=== PATIENT | female | born 1990 | race Caucasian/White ===

== ENCOUNTER 2021-03-22 15:34 | Emergency (ER) | payer MEDICAID ==
[2021-03-22 15:44] VITALS: BP 103/60; PULSE 70
[2021-03-22] MEDS ORDERED: Dextrose 5%-Lactated Ringers 1,000 ML IV SCH (15:45)
--- NOTE | 2021-03-22 16:23 | EDM.PDOC ---
ED HPI GENERAL MEDICAL PROBLEM - General Chief Complaint: Syncope Stated Complaint: SENT BY CLINIC LAB Time Seen by Provider: 03/22/21 15:40 Source of Information: Reports: Patient, Family History Limitations: Reports: No Limitations (Spouse) - History of Present Illness INITIAL COMMENTS - FREE TEXT/NARRATIVE: 30-year-old female presents to the ED after suffering a syncopal event while lying supine in the clinic lab on the side of the hospital. Patient has a propensity to faint at the site of blood since she was age 4. She has not been feeling well with continued nausea and vomiting throughout the entire . She is currently 13 weeks gestation. She did see Dr. Urena today for the first time and did have appropriate lab work drawn. Apparently the lab did obt ain all the blood that was required. Patient did suffer a syncopal event and her reports that she did have her eyes rolled back in her head and the reemergence phenomena did occur. There was no true seizure activity. She could answer appropriate questions as soon as she regained consciousness. Estimated loss of consciousness was for about 20 seconds. She did not fall and therefore did not get hurt. She had warned the tach that she is prone to fainting with lab draws. She has had persistent nausea and vomiting almost throughout the entire . She has been using diclegis 1/2 tablet at bedtime and 1/2 tablet first thing in the morning to try and control nausea and vomiting during the with some degree of success. She states that if she takes the whole dose at bedtime she is drowsy throughout a good portion of the day. She is 3 para 2. Both pregnancies were delivered by . Current estimated date of confinement is September 28, 2021. Patient has had no spotting or bleeding per vagina. But sugar checked at the rapid response unit was 80. At the time she was seen in the ED she is alert oriented and answers all questions quite appropriately. Onset: Today, Sudden Onset Date: 03/22/21 Onset Time: 15:30 (Was having phlebotomy draw at the clinic lab E side of the hospital when she had a syncopal event while lying supine in a chair. Rapid response team was summoned.) Duration: Minutes:, Improving Location: Reports: Other (Syncopal event lasting approximately 20 seconds that occurred during phlebotomy draw) Quality: Reports: Other (Vasovagal syncope) Severity: Moderate Improves with: Reports: Other (Improved spontaneously) Context: Reports: Other (Syncope occurred during phlebotomy draw which is happened to her many times in the past.). Denies: Activity, Exercise, Lifting, Sick Contact, Trauma Associated Symptoms: Reports: Loss of Appetite, Malaise, Nausea/Vomiting (Persistent nausea and vomiting throughout the entire . She has not kept down anything so far today.), Weakness. Denies: Confusion, Chest Pain, Cough, cough w sputum, Diaphoresis, Fever/Chills, Headaches, Rash, Shortness of Breath, Syncope Treatments RN CARDIAC REHAB: Reports: Other (see below) (Take lieges but did not stay down this morning) - Related Data Allergies Allergy/AdvReac Type Severity Reaction Status Date / Time No Known Allergies Allergy Verified 03/22/21 15:36 Home Meds: Home Meds Mv-Mn/Iron/FA/Herbal/Digestive [ One Tablet] 1 each PO DAILY 05/07/18 [History] Acetaminophen [Tylenol] 650 mg PO Q4H PRN tablet 05/09/18 [Rx] Acetaminophen/oxyCODONE [Percocet 325-5 MG] 1 tab PO Q6H PRN #10 tablet 05/09/18 [Rx] Docusate Sodium [Colace] 100 mg PO Q12H PRN cap 05/09/18 [Rx] Ibuprofen 200 mg PO Q6H #50 tablet 05/09/18 [Rx] Lanolin [Lansinoh HPA] 1 applic TOP ASDIRECTED PRN tube 05/09/18 [Rx] Past Medical History - Past Health History Medical/Surgical History: Denies Medical/Surgical History Respiratory History: Reports: Asthma EXPORT PACKER History: Reports: Other EXPORT PACKER History: C/S in 2014 Musculoskeletal History: Reports: Other (See Below) Other Musculoskeletal History: 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, wears wrist brace at times - Past Surgical History Respiratory Surgical History: Reports: None Female Surgical History: Reports: Section Social & Family History - Family History Family Medical History: No Pertinent Family History HEENT: Reports: Other (See Below) Cardiac: Reports: Other (See Below) Neurological: Reports: Other (See Below) Endocrine/Metabolic: Reports: Other (See Below) Oncologic: Reports: Breast - Tobacco Use Tobacco Use Status *Q: Never Tobacco User - Caffeine Use Caffeine Use: Reports: None - Recreational Drug Use Recreational Drug Use: No - Living Situation & Occupation Living situation: Reports: Occupation: Unemployed ED ROS GENERAL - Review of Systems Review Of Systems: See Below Constitutional: Reports: Malaise, Weakness, Fatigue, Decreased Appetite, Weight Loss. Denies: Fever, Chills HEENT: Reports: No Symptoms Respiratory: Reports: No Symptoms Cardiovascular: Reports: No Symptoms, Blood Pressure Problem (Pressure tends to run 100 and and 5-110 systolic.) Endocrine: Reports: No Symptoms GI/Abdominal: Reports: No Symptoms : Reports: Frequency Musculoskeletal: Reports: No Symptoms Skin: Reports: No Symptoms Neurological: Reports: Syncope (Syncopal event that occurred today during phlebotomy draw. Rapid response team was summoned to the clinic lab on the side of the hospital.) Psychiatric: Reports: No Symptoms Hematologic/Lymphatic: Reports: No Symptoms Immunologic: Reports: No Symptoms - Physical Exam Exam: See Below Exam Limited By: No Limitations General Appearance: Alert, WD/WN, No Apparent Distress, Other (Temperature is 35.6 and she is a slightly cool and clammy to touch. Heart rate is 70 in sinus respiratory is 18 with O2 sats of 99% room air BP 103 on 60. Blood sugar according to rapid response team was 80.) Eye Exam: Bilateral Eye: Normal Inspection (Mild blepharal pallor noted no scleral icterus.), PERRL Throat/Mouth: Normal Inspection, Normal Lips, Normal Teeth, Normal Oropharynx, Other (Injury to her tongue or dentition.) Head Exam: Atraumatic, Normocephalic Neck: Normal Inspection, Supple, Non-Tender, Full Range of Motion. No: Carotid Bruit, Lymphadenopathy (L), Lymphadenopathy (R) Respiratory/Chest: No Respiratory Distress, Lungs Clear, Normal Breath Sounds, No Accessory Muscle Use Cardiovascular: Normal Peripheral Pulses, Regular Rate, Rhythm, No Edema, No Gallop, No Murmur, No Rub GI/Abdominal: Normal Bowel Sounds, Soft, Non-Tender, No Organomegaly, No Mass, Pelvis Stable Neuro Exam (Abbreviated): Alert, Oriented, CN II-XII Intact, Normal Cognition, N o Motor/Sensory Deficits (Not tested.). No: Normal Gait Back Exam: Normal Inspection, Full Range of Motion. No: CVA Tenderness (L), CVA Tenderness (R) Extremities: Normal Inspection, Normal Range of Motion, Non-Tender, No Pedal Edema Psychiatric: Normal Affect Skin Exam: Warm, Dry, Intact, Normal Color, Cool Course - Vital Signs Last Recorded V/S: Last Vital Signs Temp 35.6 C L 03/22/21 15:38 Pulse 70 03/22/21 15:38 Resp 18 03/22/21 15:38 BP 103/60 03/22/21 15:38 Pulse Ox 99 03/22/21 15:38 Orthostatic Blood Pressure [ 103/68 Standing] Orthostatic Blood Pressure [ 112/67 Sitting] Orthostatic Blood Pressure [ 99/49 Supine] - Orders/Labs/Meds Meds: Medications Discontinued Medications Generic Name Dose Route Start Last Admin Trade Name Freq PRN Reason Stop Dose Admin Dextrose/Lactated Ringer's 1,000 mls @ 999 mls/hr 03/22/21 15:45 03/22/21 15:48 Dextrose 5%-Lactated Ringers IV 999 mls/hr ASDIRECTED GILBERTO Administration Metoclopramide HCl 7.5 mg 03/22/21 16:28 03/22/21 16:37 Metoclopramide 10 Mg/2 Ml Sdv IVPUSH 03/22/21 16:29 7.5 mg ONETIME ONE Administration - Radiology Interpretation Free Text/Narrative:: 30-year-old female presents to the ED after suffering a syncopal event well undergoing phlebotomy in the [facility] of the [facility]. She had just come from Dr. Urena's office for her first visit. Of note she is 3 para 2 and is currently 13 weeks gestation with estimated date of confinement set for September 28, 2021. A rapid response team was called to the lab and identified that she had suffered a syncopal event. She was unresponsive for approximately 20 seconds and did experience some reemergence phenomenon with some jerking of her upper limbs and eyes were rolled back in her head during the 20 seconds that she was unresponsive. No true seizure occurred. Blood sugar on scene was 80. On examination in the ED her blood pressure was up to 110/49. We did not do her orthostatics and she indicates she has not ate or drank much at all today due to recurrent nausea and vomiting. She denies any hematemesis. Apparently the lab did receive all of the blood tests ordered. We will have them sent over to our department once they are available. Plan she will be given Reglan 7.5 mg IV with D5 Ringer's lactate at open. - Re-Assessments/Exams Free Text/Narrative Re-Assessment/Exam: 03/22/21 16:42 labs were obtained from her lab draw [facility] the [facility]. White count is 10.30 with 74.3% neutrophils. Hemoglobin is 13.4 with hematocrit of 40.0 platelet count 310,000. MCV is normal TSH was found to be 0.054 and free T4 is 0.96. Sodium 134 slightly low potassium slightly low at 3.2 from not being able to eat. Chloride is 99 with a bicarb of 22. Anion gap was mildly elevated at 16.2. Random glucose in the lab was 85. BUN was 9 with a creatinine of 0.8 and a GFR greater than 60. Calcium was 8.7. Total protein 7.5 with an albumin fraction of 3.6 and globulin normal at 3.9. Lactic acid was 1.1. Microalbumin done on the urine was 16.2 with normal being 1.3-20.0. Urinalysis showed slightly cloudy urine with 1+ protein and 12+ ketones and 1+ bilirubin. The slide revealed no RBCs or WBCs. She has completed a full liter of IV fluids. Blood pressure remains slightly low at 95/58 at present. Heart rate is 72 and sinus. She states she feels better. I am going to have the nurses recheck her orthostatic BPs sitting and standing at this time to see if she needs more fluid. Departure - Departure Time of Disposition: 17:45 Disposition: Home, Self-Care 01 Condition: Fair Clinical Impression: Vasovagal syncope, Hyperemesis gravidarum before end of 22 week gestation with carbohydrate depletion - Discharge Information *PRESCRIPTION DRUG MONITORING PROGRAM REVIEWED*: Not Applicable *COPY OF PRESCRIPTION DRUG MONITORING REPORT IN PATIENT MARITA: Not Applicable Instructions: Hyperemesis Gravidarum, Dehydration, Adult, [id number] Referrals: Chema Cullen MD [Primary Care Provider] - Forms: ED Department Discharge Additional Instructions: Evaluation in the emergency room today in regards to a fainting spell or syncopal event that occurred while having blood draw at the clinic on the side of the hospital. You had indicated that you are prone to fainting especially with blood draws and therefore you were seated in a chair when the event occurred. Condition is complicated by the fact that you have significant nausea and vomiting over the last month secondary to or hyperemesis grav idarum. This is created a volume depletion which makes you more prone to fainting as well. There was no clinical evidence of seizure activity. He did suffer we will recall the reemergence phenomenon as blood pressure comes back up in the brain has its blood pressure returned this will cause some transient jerking movements of the limbs and face but you are able to speak and answer questions appropriately right away. In the emergency room he received a liter of IV fluids to replenish fluid losses. Labs obtained from the clinic that were drawn were all within normal limits. He also received Reglan 7.5 mg IV for nausea relief while in the ED. Sepsis Event Note (ED) - Evaluation Sepsis Screening Result: No Definite Risk - Focused Exam Vital Signs: Vital Signs Temp Pulse Resp BP Pulse Ox 03/22/21 15:38 35.6 C L 70 18 103/60 99
[2021-03-22] MEDS ORDERED: Metoclopramide 10 MG/2 ML SDV IVPUSH ONE (16:28)
== END 2021-03-22 17:49 | disposition home or self-care (01) ==
LOC: JD.ED 15:34
DX: O21.1 Hyperemesis gravidarum with metabolic disturbance (principal); O99.511 Diseases of the respiratory system complicating pregnancy, first trimester; J45.909 Unspecified asthma, uncomplicated; Z3A.13 13 weeks gestation of pregnancy
CPT/HCPCS: 96374; 99283; J2765; J7121; 99284

== ENCOUNTER 2021-09-21 04:54 | Inpatient (IN) | payer MEDICAID ==
--- NOTE | 2021-09-20 20:48 | PCM.LDHP ---
L&D History of Present Illness - General Date of Service: 09/20/21 Admit Problem/Dx: Admission Diagnosis/Problem Admission Diagnosis/Problem 09/20/21 20:36 Mikala is a 31-year-old 3 para 2-0-0-2 female at 39-0/7 weeks gestational age with an CHRISSIE of 09/28/2021 when admitted on the morning of 09/21/2021 for a repeat section. Source of Information: Patient History Limitations: Reports: No Limitations - History of Present Illness Introduction:: Mikala is a 31-year-old 3 para 2-0-0-2 female at 39-0/7 weeks gestational age with an CHRISSIE of 09/28/2021 when admitted on the morning of 09/21/2021 for a repeat section. The process, procedure, risks, benefits and alternatives of care and follow-up regarding are discussed in detail with patient. She appears understand and wishes to proceed. Consent is signed. FLITCH HANGER history: The patient is a 3 para 2-0-0-2. She had menarche at approximately age 11. Cycles q. 28 to 30 days. She is not using any control at the time of conception. Her CHRISSIE of 09/28/2021 is determined by an early ultrasound done at 8 and 07 weeks gestational age and supported by at least 3 other ultrasounds during the course of the . She has a history of 2 other C-sections as follows: 1. Female born on 02/10/2017 at 40-4/7 weeks gestational age7 pounds 13 ouncesprimary section done for failure to progress. Spinal block use. Child's name is Hugo. 2. Female born 05/07/2020 at 39 and 07 weeks gestational age1 hour of labor6 pounds 14 ounces. Repeat sectionspinal block used. Child's name is Karen. Patient has had no abnormal Pap smears or STIs in the past. She is sexually active, using no control at the time of conception. course: Mikala was first seen at 8-0/7 weeks gestational age. She was seen on a very regular basis throughout the . Her vital signs remained stable throughout the . Her weight gain was from a pregravid weight of 197 pounds and increased to 209 pounds for a 12 pound increase. Fundal height growth was somewhat ahead of schedule based on gestational age. She desires a repeat section. She is group B strep negative. She has asthma which has been relatively stable during the course of the . She plans to bottlefeed. She had prequel which was negative for trisomy 18, 13 and 21. Tdap and flu vaccine were given on 07/20/2021. Laboratory testing showed blood to be O+ with a negative antibody screen on first jeremy visit. Hemoglobin was 13.4 g/dL and platelets were 310,000. Rubella titer showed immunity and RPR was nonreactive. Hepatitis B surface antigen and HIV assays were both negative. Chlamydia, gonorrhea and HCV antibody were negative. TSH was normal on 03/22/2021 at 0.054 mg/L. Second trimester labs showed hemoglobin mildly decreased at 10.2 g/dL and platelets of 343,000. Her GTT was normal at 110. Repeat hemoglobin after initiation of iron replacement therapy done on 08/24/2021 was 10.4 g/dL. Platelets are 268,000 and group B strep screen was negative. Hemoglobin A1c was 5.3. Allergies: None Medications: 1. Metoclopramide HCl 10 mg p.o. 4 times a day for nausea 2. Ferrous sulfate 3 and 25 mg p.o. twice daily 3. Diclegis as needed in early for nausea 4. vitamins 1 p.o. daily Past medical history: 1. Asthma which has been relatively stable during . 2. Seasonal allergies Past surgical history: x2 in 2014 2017 Family history: Father and paternal grandmother and great-grandmother with pituitary tumors. Father and paternal grandmother with thyroid dysfunction. Paternal grandmother has a history of breast cancer. Paternal grandfather is prediabetic. Maternal grandfather has stents and pacemaker placed for cardiac vessel disease. No anesthesia, bleeding, blood pressure or related problems are noted in the family. Social history: Patient is . 's name is Jose. 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 She does not use any significance alcohol, drugs or tobacco. Review of systems: Review of systems: In general patient has no complaints. Baby has been active. No significant contractions noted Skin: Negative Lungs: No infectious symptoms or shortness of breath Cardiovascular: No chest pain or exercise intolerance Breasts: No lumps, changes in size, pain, dimpling, discharge or axillary or supraclavicular concerns. Changes associated with . Patient plans to bottlefeed. GI: Negative : Body habitus changes associated with . Musculoskeletal: Negative Neurological: Negative Physical exam: In general the patient is well-developed, well-nourished, pleasant female of stated age in no acute distress. Skin is warm dry without lesions. HEENT, neck and back within normal limits. Lungs are clear with good breath sounds in all lung judge. Cardiovascular exam shows regular and rhythm without murmurs. Breast exam is not done at this time. Patient reported that it was done within the last year and was normal. Abdomen is gravid with last fundal height on 09/14/2021 at 42 cm. Baby in vertex presentation.. Genital digital exam last done on 09/14/2021 showed cervix to be closed/- 5/soft/50% effaced/mid position. Extremities and neurological exam are grossly within normal limits. - Related Data Allergies/Adverse Reactions: Allergies Allergy/AdvReac Type Severity Reaction Status Date / Time No Known Allergies Allergy Verified 03/22/21 15:36 Home Medications: Home Meds Mv-Mn/Iron/FA/Herbal/Digestive [ One Tablet] 1 each PO DAILY 05/07/18 [History] Acetaminophen [Tylenol] 650 mg PO Q4H PRN tablet 05/09/18 [Rx] Acetaminophen/oxyCODONE [Percocet 325-5 MG] 1 tab PO Q6H PRN #10 tablet 05/09/18 [Rx] Docusate Sodium [Colace] 100 mg PO Q12H PRN cap 05/09/18 [Rx] Ibuprofen 200 mg PO Q6H #50 tablet 05/09/18 [Rx] Lanolin [Lansinoh HPA] 1 applic TOP ASDIRECTED PRN tube 05/09/18 [Rx] Past Medical History - Past Health History Medical/Surgical History: Denies Medical/Surgical History Respiratory History: Reports: Asthma FLITCH HANGER History: Reports: Other OB/BYN History: C/S in 2014 Musculoskeletal History: Reports: Other (See Below) Other Musculoskeletal History: 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, wears wrist brace at times - Past Surgical History Respiratory Surgical History: Reports: None Female Surgical History: Reports: Section Social & Family History - Family History Family Medical History: No Pertinent Family History HEENT: Reports: Other (See Below) Cardiac: Reports: Other (See Below) Neurological: Reports: Other (See Below) Endocrine/Metabolic: Reports: Other (See Below) Oncologic: Reports: Breast - Caffeine Use Caffeine Use: Reports: None - Living Situation & Occupation Living situation: Reports: Occupation: Unemployed H&P Review of Systems - Review of Systems: Review Of Systems: See Below L&D Exam - Exam Exam: See Below - Problem List (1) 39 weeks gestation of SNOMED Code(s): 81210616 ICD Code: Z3A.39 - 39 WEEKS GESTATION OF Status: Acute (2) H/O section complicating SNOMED Code(s): 189228494, 931288087 ICD Code: O34.219 - MATERNAL CARE FOR UNSP TYPE SCAR FROM PREVIOUS DEL Status: Acute (3) Obesity SNOMED Code(s): 372951348, 883635957 ICD Code: E66.9 - OBESITY, UNSPECIFIED Status: Acute Qualifiers: Body mass index: BMI 34.0-34.9 Problem List Initiated/Reviewed/Updated: Yes Assessment/Plan Comment:: 1.Mikala is a 31-year-old 3 para 2-0-0-2 female at 39-0/7 weeks gestational age with an CHRISSIE of 09/28/2021 when admitted on the morning of 09/21/2021 for a repeat section. 2. Risk factors for the include history of previous x2, obesity, asthma history, anemia in . 3. Group B strep screen negative 4. Patient plans to bottle-feed 5. Prequel noninvasive screen showed low risk for trisomy 21, 18 and 13. 6. Patient has had her Tdap and her flu immunization Plan: 1. Repeat lower uterine segment transverse section through Pfa nnenstiel skin incision under spinal block. Procedure, risk, benefits, alternatives of care including attempt at vaginal delivery are all discussed with patient. She appears understand and wishes to proceed 2. DVT prophylaxis with SCDs 3. Infection prophylaxis with Ancef 2 g IV preop 4. Routine preoperative evaluation consist of CBC, type and screen, COVID-19 testing and RPR. 5. Finished Metal Repairer invited to be in attendance for delivery 6. Support bottlefeeding plans.
[~2021-09-21 04:54] MED LIST: Lactated Ringers 1,000 ML IV SCH; Ondansetron 4 MG/2 ML SDV IVPUSH PRN; Oxytocin/Lactated Ringers 20 UNIT/1,000 ML BAG IV SCH; ceFAZolin 2 GM in Premix Bag 1 BAG IV ONE
[2021-09-21] MEDS ORDERED: Metoclopramide 10 MG/2 ML SDV IVPUSH ONE (06:00)
[2021-09-21] MEDS ORDERED: Citric Acid/Sodium Citrate Solution 30 ML Cup PO ONE (06:00)
[2021-09-21] MEDS ORDERED: Morphine PF 10 MG/10 ML SDV ONE (06:54)
[2021-09-21] MEDS ORDERED: fentaNYL 100 MCG/2 ML SDV ONE (06:54)
[2021-09-21] MEDS ORDERED: Oxytocin 10 Units/1 ML SDV ONE ×2 (06:55→08:29)
[2021-09-21] MEDS ORDERED: ceFAZolin 1 GM Vial ONE (06:58)
--- NOTE | 2021-09-21 07:16 | PCM.PREANE ---
Preanesthetic Assessment - Procedure Proposed Procedure: Repeat - Anesthesia/Transfusion/Family Hx Anesthesia History: Prior Anesthesia Without Reaction Transfusion History: No Prior Transfusion(s) - Review of Systems General: No Symptoms Pulmonary: No Symptoms Cardiovascular: No Symptoms Gastrointestinal: No Symptoms Neurological: No Symptoms Other: Reports: None - Physical Assessment NPO Status Date: 09/20/21 NPO Status Time: 19:00 Vital Signs: Last Vital Signs Temp 98.6 F 09/21/21 05:17 Pulse 72 09/21/21 05:17 Resp 16 09/21/21 05:17 BP 123/62 09/21/21 05:17 Pulse Ox 98 09/21/21 05:17 Height: 1.63 m Weight: 95.708 kg ASA Class: 2 Mental Status: Alert & Oriented x3 Dentition: Reports: Normal Dentition Thyro-Mental Finger Breadths: 3 Mouth Opening Finger Breadths: 3 ROM/Head Extension: Full Lungs: Clear to Auscultation, Normal Respiratory Effort Cardiovascular: Regular Rate, Regular Rhythm - Lab Values: Laboratory Last Values WBC 8.27 K/mm3 (3.98-10.04) 09/21/21 05:40 RBC 3.93 M/mm3 (3.98-5.22) L 09/21/21 05:40 Hgb 11.5 gm/dl (11.2-15.7) 09/21/21 05:40 Hct 35.9 % (34.1-44.9) 09/21/21 05:40 MCV 91.3 fl (79.4-94.8) 09/21/21 05:40 MCH 29.3 pg (25.6-32.2) 09/21/21 05:40 MCHC 32.0 g/dl (32.2-35.5) L 09/21/21 05:40 RDW Std Deviation 55.9 fL (36.4-46.3) H 09/21/21 05:40 Plt Count 269 K/mm3 (182-369) 09/21/21 05:40 MPV 10.2 fl (9.4-12.3) 09/21/21 05:40 Neut % (Auto) 68.0 % (34.0-71.1) 09/21/21 05:40 Lymph % (Auto) 22.4 % (19.3-51.7) 09/21/21 05:40 [place] % (Auto) 8.0 % (4.7-12.5) 09/21/21 05:40 Eos % (Auto) 1.0 (0.7-5.8) 09/21/21 05:40 Baso % (Auto) 0.2 % (0.1-1.2) 09/21/21 05:40 Neut # (Auto) 5.63 K/mm3 (1.56-6.13) 09/21/21 05:40 Lymph # (Auto) 1.85 K/mm3 (1.18-3.74) 09/21/21 05:40 [place] # (Auto) 0.66 K/mm3 (0.24-0.36) H 09/21/21 05:40 Eos # (Auto) 0.08 K/mm3 (0.04-0.36) 09/21/21 05:40 Baso # (Auto) 0.02 K/mm3 (0.01-0.08) 09/21/21 05:40 SARS-CoV-2 RNA (YASSINE) Negative (NEGATIVE) 09/21/21 05:20 - Allergies Allergies/Adverse Reactions: Allergies Allergy/AdvReac Type Severity Reaction Status Date / Time No Known Allergies Allergy Verified 09/21/21 05:04 - Acknowledgements Anesthesia Type Planned: Spinal Pt an Appropriate Candidate for the Planned Anesthesia: Yes Alternatives and Risks of Anesthesia Discussed w Pt/Guardian: Yes Pt/Guardian Understands and Agrees with Anesthesia Plan: Yes PreAnesthesia Questionnaire - Past Health History Medical/Surgical History: Denies Medical/Surgical History Respiratory History: Reports: Asthma Other Respiratory History: Seasonal Asthma ECOTHERAPIST History: Reports: Other OB/BYN History: C/S in 2014,2017 Musculoskeletal History: Reports: Other (See Below) Other Musculoskeletal History: 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, wears wrist brace at times Psychiatric History: Reports: Depression Other Psychiatric History: Hx of PP depression Endocrine/Metabolic History: Reports: Hyperthyroidism Hematologic History: Reports: Anemia - Past Surgical History HEENT Surgical History: Reports: Oral Surgery Other HEENT Surgeries/Procedures: Chuckey Teeth removed Respiratory Surgical History: Reports: None Female Surgical History: Reports: Section Other Female Surgeries/Procedures: x2 2014, 2017 - SUBSTANCE USE Tobacco Use Status *Q: Never Tobacco User Tobacco Use Within Last Twelve Months: No Second Hand Smoke Exposure: No Recreational Drug Use History: No - HOME MEDS Home Medications: Home Meds Mv-Mn/Iron/FA/Herbal/Digestive [ One Tablet] 1 each PO DAILY 05/07/18 [History] Docusate Sodium [Colace] 100 mg PO Q12H PRN cap 05/09/18 [Rx] Ferrous Sulfate 1 tab PO DAILY 09/21/21 [History] Metoclopramide [Reglan] 10 mg PO DAILY PRN 09/21/21 [History] - CURRENT (IN HOUSE) MEDS Current Meds: Current Medications Oxytocin/Lactated Ringer's (Pitocin In Lr 20 Units/1,000 Ml) 20 unit in 1,000 mls @ 500 mls/hr IV TITRATE GILBERTO; Protocol Lactated Ringer's (Ringers, Lactated) 1,000 mls @ 125 mls/hr IV ASDIRECTED GILBERTO Last Admin: 09/21/21 06:10 Dose: 125 mls/hr Documented by: Ondansetron HCl (Ondansetron 4 Mg/2 Ml Sdv) 4 mg IVPUSH Q4H PRN PRN Reason: Nausea/Vomiting Sodium Chloride (Sodium Chloride 0.9% 10 Ml Syringe) 10 ml FLUSH 0900,2100 GILBERTO Discontinued Medications Cefazolin Sodium (Cefazolin 1 Gm Vial) Confirm Administered Dose 2 gm .ROUTE .STK-MED ONE Stop: 09/21/21 06:59 Citric Acid/Sodium Citrate (Citric Acid/Sodium Citrate Solution 30 Ml Cup) 30 ml PO ONETIME ONE Stop: 09/21/21 06:01 Fentanyl (Fentanyl 100 Mcg/2 Ml Sdv) Confirm Administered Dose 100 mcg .ROUTE .STK-MED ONE Stop: 09/21/21 06:55 Cefazolin Sodium/Dextrose 2 gm (/ Premix) 50 mls @ 100 mls/hr IV ONETIME ONE Stop: 09/21/21 03:28 Metoclopramide HCl (Metoclopramide 10 Mg/2 Ml Sdv) 10 mg IVPUSH ONETIME ONE Stop: 09/21/21 06:01 Morphine Sulfate (Morphine Pf 10 Mg/10 Ml Sdv) Confirm Administered Dose 10 mg .ROUTE .STK-MED ONE Stop: 09/21/21 06:55 Oxytocin (Oxytocin 10 Units/1 Ml Sdv) Confirm Administered Dose 20 unit .[facility]TE [facility] Stop: 09/21/21 06:56
[2021-09-21] MEDS ORDERED: Bupivacaine 0.5% 30 ML SDV ONE (07:26)
[2021-09-21] MEDS ORDERED: ePHEDrine 50 MG/ML SDV ONE (08:04)
[2021-09-21] MEDS ORDERED: Ketorolac 30 MG/ML SDV ONE (08:21)
[2021-09-21] MEDS ORDERED: Ondansetron 4 MG/2 ML SDV ONE (08:21)
[2021-09-21] MEDS ORDERED: Lactated Ringers 2,000 ML ONE (08:22)
[2021-09-21] MEDS ORDERED: fentaNYL 100 MCG/2 ML SDV IVPUSH PRN (08:23)
[2021-09-21] MEDS ORDERED: Ondansetron 4 MG/2 ML SDV IVPUSH PRN (08:23)
[2021-09-21] MEDS ORDERED: diphenhydrAMINE 50 MG/ML SDV IVPUSH PRN ×2 (08:23→10:40)
[2021-09-21] MEDS ORDERED: Sodium Chloride 0.9% 10 ML Syringe FLUSH SCH (09:00)
--- NOTE | 2021-09-21 09:07 | PCM.OPNOTE ---
- General Post-Op/Procedure Note Date of Surgery/Procedure: 09/21/21 Operative Procedure(s): Repeat lower uterine segment transverse section through Pfannenstiel skin incision under spinal block. Findings: Uterus was normal in appearance for term . Fallopian tubes and ovaries bilaterally were normal in appearance. Baby in vertex presentation. Amniotic fluid is clear. Lower uterine segment is approximately 3-4 mm thick. Minimal scarring noted in the anterior abdominal wall and the uterine wall. Female weighing 4420 g (9 pounds 12 ounces and had a length of 21 inches with scores of 8 and 8. Pre Op Diagnosis: 1. 39-week intrauterine . 2. History of previous section desire for repeat section. Post-Op Diagnosis: Same with delivery of a 9 pound 12 ounce (4420 g) female infant with Apgars of 8 and 8 and a length of 21 inches. Anesthesia Technique: Spinal Other Anesthesia Type: Marcaine 0.5% - 20 mLlocal Primary Surgeon: Swapnil Urena Secondary Surgeon: Corey Cartagena Anesthesia Provider: Robert Thacker Reason Injection Operator Was Necessary: Retraction, assistance, patient safety, quality of care. Fluid Replacement, Intraop: 2,400 Output, Urine Amount: 150 EBL in mLs: 850 Drain/Tube Comments:: Indwelling bladder catheter Complications: None Condition: Good Free Text/Narrative:: Surgery duration: 31 minutes Surgery duration: Procedure: The patient is appropriately consented. Patient was transferred to the room and placed in a sitting position. Spinal anesthesia was administered. After confirmation of adequate anesthesia patient was placed in a supine position with a wedge under her right side to facilitate left lateral pos itioning. The patient was prepped and draped in usual fashion after Mon catheter was already placed . The anesthetic was checked and found to be adequate. 20 mL of Marcaine 0.5% was injected locally in the Pfannenstiel incision site. The old scar was removed, Pfannenstiel skin incision was then made and carried down through skin, subcutaneous and fascial layers. The fascia was then undermined superiorly and inferiorly to allow for adequate operating room. The recti muscles midline and preperitoneal fat was bluntly dissected. Peritoneal cavity was entered longitudinally. The vesicouterine peritoneum was then incised transversely and bladder flap was developed. Myometrium was incised transversely to the level of the amniotic sac. This incision was extended bilaterally in a blunt fashion. The amniotic sac was then ruptured resulting in clear amniotic fluid. A hand is placed in the low uterine segment and the baby's head was brought forth through the incision. The baby was completely delivered using fundal pressure in a routine fashion. The nose and mouth were bulb suctioned. Baby's cord was clamped x2 cut and baby was handed off to attending coat joiner lockstitch Dr Camarena. Placenta was expressed after cord blood was obtained. Uterus was then exteriorized to allow for easier closure. The cervix was assessed and found to be dilated adequately to allow egress of blood. The uterus was closed in 2 layers. The first layer a running locked suture of 0 Monocryl, the second layer a running locked vertical mattress suture of 0 Monocryl. [id number] suture was placed at mid incision to control 1 bleeder. Hemostasis confirmed at this time. Sponge instrument needle counts are correct. The uterus was returned to the abdominal cavity and lateral gutters were cleared of blood. Once again sponge needle counts are correct. The anterior abdominal wall was closed with a #1 PDS suture from angle to angle. The subcutaneous area was found to be free of any bleeders. interrupted sutures of 3-0 Monocryl were used to reapproximate the subcutaneous layer.Skin was closed with a running subcuticular stitch of 3-0 Monocryl in a vertical mattress suture fashion using a Jay needle. Prineo mesh/glue was then applied to further approximate the incision. It should be noted that patient received 2 g of Ancef preoperatively for infection prophylaxis and had Pitocin infused after delivery of the placenta to facilitate uterine contraction. She also had sequential compression stockings in place for DVT prophylaxis. Patient was discharged from the operating room in satisfactory condition.
--- NOTE | 2021-09-21 09:13 | PCM.POSTAN ---
POST ANESTHESIA ASSESSMENT - MENTAL STATUS Mental Status: Alert, Oriented - VITAL SIGNS Vital Signs: Last Vital Signs Temp 97.2 F 09/21/21 09:00 Pulse 74 09/21/21 09:00 Resp 16 09/21/21 09:00 BP 91/41 L 09/21/21 09:00 Pulse Ox 97 09/21/21 09:00 - RESPIRATORY Respiratory Status: Respiratory Rate WNL, Airway Patent, O2 Saturation Stable - CARDIOVASCULAR CV Status: Pulse Rate WNL, Blood Pressure Stable - GASTROINTESTINAL GI Status: No Symptoms - PAIN Pain Score: 0 (post SAB) - POST OP HYDRATION Hydration Status: Adequate & Stable
[2021-09-21] MEDS ORDERED: Docusate Sodium 100 MG Cap PO PRN (10:40)
[2021-09-21] MEDS ORDERED: Ondansetron 4 MG/2 ML SDV IV PRN (10:40)
[2021-09-21] MEDS ORDERED: Naloxone 0.4 MG/ML SDV IVPUSH PRN (10:40)
[2021-09-21] MEDS ORDERED: Acetaminophen/oxyCODONE 325-5 MG Tab PO PRN (10:40)
[2021-09-21] MEDS ORDERED: ePHEDrine 50 MG/ML SDV IVPUSH PRN (10:40)
[2021-09-21] MEDS ORDERED: Dextrose 5%-Lactated Ringers 1,000 ML IV SCH ×2 (10:40→18:30)
[2021-09-21] MEDS: Prochlorperazine 10 MG/2 ML SDV IVPUSH PRN ×2 (13:56→16:54)
[2021-09-21] MEDS: Simethicone 80 MG Tab.Chew PO SCH ×3 (15:03→21:21)
[2021-09-21] MEDS: Prenatal Multivitamin with Calcium/Folic Acid/Iron Tab PO SCH (15:03)
[2021-09-21] MEDS ORDERED: Lactated Ringers 1,000 ML IV ONE (17:24)
[2021-09-21] MEDS: Ibuprofen 800 MG Tab PO SCH (17:50)
[2021-09-22] MEDS: Ibuprofen 800 MG Tab PO SCH ×4 (00:56→18:15)
[2021-09-22] MEDS: Acetaminophen/oxyCODONE 325-5 MG Tab PO PRN ×3 (06:25→20:41)
--- NOTE | 2021-09-22 07:48 | PCM48HPAN ---
Post Anesthesia Note - EVALUATION WITHIN 48HRS OF ANESTHETIC Vital Signs in Normal Range: Yes Patient Participated in Evaluation: Yes Respiratory Function Stable: Yes Airway Patent: Yes Cardiovascular Function Stable: Yes Hydration Status Stable: Yes Pain Control Satisfactory: Yes Nausea and Vomiting Control Satisfactory: Yes Mental Status Recovered: Yes Vital Signs: Last Vital Signs Temp 36.4 C 09/22/21 03:31 Pulse 66 09/22/21 03:31 Resp 16 09/22/21 07:00 BP 107/49 L 09/22/21 03:31 Pulse Ox 99 09/22/21 07:00 - COMMENTS/OBSERVATIONS Free Text/Narrative:: some concern about her o2 status last night as report given by RN. O2 sats would drop to 88%. NC implemented and d/c this AM. vitals in normal range when pt awake. Consulted patient on speaking with primary care about doing a sleep study to evaluate for possible BETTIE.
[2021-09-22] MEDS: Prenatal Multivitamin with Calcium/Folic Acid/Iron Tab PO SCH (10:34)
[2021-09-22] MEDS: Simethicone 80 MG Tab.Chew PO SCH ×4 (10:34→20:42)
--- NOTE | 2021-09-22 12:54 | PCM.SN.2 ---
- Free Text/Narrative Note: Post Operative Progress Note POD #1 Subjective: Doing well overall. Ambulating without difficulty. Lochia minimal. Voiding without difficulty after removal of Mon catheter earlier this morning. Passing flatus. Tolerating regular diet without nausea or vomiting this morning. Reports that she did have some nausea and vomiting throughout the afternoon on POD #0. Pain controlled with oral medications. Bottle feeding with minimal difficulty. Objective: Vitals: Vital Signs - 24 hr 09/21/21 09/21/21 09/21/21 16:00 16:19 16:30 Temperature 36.1 C Temperature [ Temporal] Pulse, 56 L Peripheral Respiratory 16 Rate Blood Pressure 106/68 O2 Sat by Pulse 99 Oximetry O2 Sat by Pulse 100 99 Oximetry [ Nasal Cannula] 09/21/21 09/21/21 09/21/21 19:00 19:43 19:44 Temperature 36.9 C Temperature [ Temporal] Pulse, 54 L 54 L Peripheral Respiratory 15 16 Rate Blood Pressure 112/62 O2 Sat by Pulse 99 100 100 Oximetry O2 Sat by Pulse Oximetry [ Nasal Cannula] 09/22/21 09/22/21 09/22/21 00:00 00:36 01:00 Temperature 36.9 C Temperature [ Temporal] Pulse, 57 L Peripheral Respiratory 12 12 12 Rate Blood Pressure 97/51 L O2 Sat by Pulse 97 96 96 Oximetry O2 Sat by Pulse Oximetry [ Nasal Cannula] 09/22/21 09/22/21 09/22/21 02:00 03:31 04:00 Temperature 36.4 C Temperature [ Temporal] Pulse, 66 Peripheral Respiratory 14 12 16 Rate Blood Pressure 107/49 L O2 Sat by Pulse 98 93 L 99 Oximetry O2 Sat by Pulse Oximetry [ Nasal Cannula] Physical Exam General: Alert and oriented, no acute distress Lungs: Clear to auscultation bilaterally Heart: Regular rate and rhythm Abdomen: Soft, minimal appropriate tenderness, non-distended, fundus midline, nontender and at the umbilicus Incision: Clean, dry and intact, no erythema, bleeding or drainage with Prineo dressing in place Extremities: No edema in bilateral lower extremities, no calf tenderness bilat erally Labs: Laboratory Results - last 24 hr 09/21/21 Range/Units 05:40 RPR Non-reactive (NONREACTIVE) ASSESSMENT: 31-year-old female -0-0-3 s/p repeat section POD #1 for history of section, complicated by history of section x2, history of preeclampsia, obesity and asthma PLAN: Doing well Bottlefeeding with minimal difficulty. Assist as needed Incision healing well. Continue to keep clean and dry. Lochia minimal. Continue to monitor for appropriate lochia. Continue routine post-operative care Anticipate discharge home tomorrow Corey Cartagena MD 12:52 PM 09/22/2021
[2021-09-23] MEDS: Acetaminophen/oxyCODONE 325-5 MG Tab PO PRN (01:26)
[2021-09-23] MEDS: Ibuprofen 800 MG Tab PO SCH (03:19)
--- NOTE | 2021-09-23 08:32 | PCM.DCSUM1 ---
Discharge Summary - Hospital Course Brief History: 39-week intrauterine . 2. History of previous section desire for repeat section with delivery of a 9 pound 12 ounce (4420 g) female infant with Apgars of 8 and 8 and a length of 21 inches Diagnosis: Stroke: No - Discharge Data Discharge Date: 09/23/21 Discharge Disposition: Home, Self-Care 01 Condition: Good - Referral to Home Health Primary Care Physician: Chema Li MD - Patient Summary/Data Operative Procedure(s) Performed: Repeat lower uterine segment transverse section through Pfannenstiel skin incision under spinal block. - Patient Instructions Diet: Regular Diet as Tolerated Activity: Apply Ice, As Tolerated, No Lifting Over 20 Pounds Activity, Other: Nothing in the vagina for 6 weeks Driving: Do Not Drive (While taking narcotic medications or having significant pain) Showering/Bathing: May Shower Wound/Incision Care: Keep Operative Site/Wound Site Clean and Dry Notify Provider of: Fever, Increased Pain, Swelling and Redness, Drainage, Nausea and/or Vomiting Other/Special Instructions: Please contact your physician's office if you note any bleeding or pus coming from the abdominal incision. Please contact your physician's office if you have heavy vaginal bleeding enough to soak a pad in less than an hour for several hours. Monitor for any signs of an infection in the breasts with severe pain or redness of the breast. - Discharge Plan *PRESCRIPTION DRUG MONITORING PROGRAM REVIEWED*: Yes *COPY OF PRESCRIPTION DRUG MONITORING REPORT IN PATIENT MARITA: No Prescriptions/Med Rec: Acetaminophen/oxyCODONE [Percocet 325-5 MG] 1 - 2 tab PO Q4H PRN #30 tablet PRN Reason: Pain Home Medications: Home Meds Mv-Mn/Iron/FA/Herbal/Digestive [ One Tablet] 1 each PO DAILY 05/07/18 [History] Docusate Sodium [Colace] 100 mg PO Q12H PRN cap 05/09/18 [Rx] Ferrous Sulfate 1 tab PO DAILY 09/21/21 [History] Metoclopramide [Reglan] 10 mg PO DAILY PRN 09/21/21 [History] Acetaminophen/oxyCODONE [Percocet 325-5 MG] 1 - 2 tab PO Q4H PRN #30 tablet 09/22/21 [Rx] Ibuprofen [Motrin] 800 mg PO Q8H tablet 09/22/21 [Rx] Simethicone 80 mg PO QID tab.chew 09/22/21 [Rx] Patient Handouts: Delivery, Care After Referrals: Swapnil Urena MD [Physician] - (Follow-up in 2 weeks for routine postoperative visit or earlier as needed) - Discharge Summary/Plan Comment DC Time >30 min.: No Total # of Minutes for Discharge Time: 15 - General Info Date of Service: 09/23/21 Functional Status: Reports: Pain Controlled - Review of Systems General: Reports: No Symptoms HEENT: Reports: No Symptoms Pulmonary: Reports: No Symptoms Cardiovascular: Reports: No Symptoms Gastrointestinal: Reports: No Symptoms Genitourinary: Reports: No Symptoms Musculoskeletal: Reports: No Symptoms Skin: Reports: No Symptoms Neurological: Reports: No Symptoms Psychiatric: Reports: No Symptoms - Patient Data Vitals - Most Recent: Last Vital Signs Temp 36.4 C 09/23/21 03:06 Pulse 68 09/23/21 03:06 Resp 14 09/23/21 03:06 BP 107/67 09/23/21 03:06 Pulse Ox 92 L 09/23/21 03:06 Weight - Most Recent: 95.708 kg I&O - Last 24 hours: Intake & Output 09/22/21 09/23/21 09/23/21 22:59 06:59 14:59 Intake Total 440 Balance 440 Med Orders - Current: Current Medications Diphenhydramine HCl (Diphenhydramine 50 Mg/Ml Sdv) 25 mg IVPUSH Q6H PRN PRN Reason: Itching or Nausea Docusate Sodium (Docusate Sodium 100 Mg Cap) 100 mg PO Q12H PRN PRN Reason: Constipation Ephedrine Sulfate (Ephedrine 50 Mg/Ml Sdv) 5 mg IVPUSH SEECOMMENT PRN PRN Reason: Other Ibuprofen (Ibuprofen 800 Mg Tab) 800 mg PO Q8H GILBERTO Last Admin: 09/23/21 03:19 Dose: 800 mg Documented by: Naloxone HCl (Naloxone 0.4 Mg/Ml Sdv) 0.1 mg IVPUSH SEECOMMENT PRN PRN Reason: Respiratory Depression Ondansetron HCl (Ondansetron 4 Mg/2 Ml Sdv) 4 mg IV Q4H PRN PRN Reason: Nausea/Vomiting Last Admin: 09/21/21 10:53 Dose: 4 mg Documented by: Oxycodone/Acetaminophen (Acetaminophen/Oxycodone 325-5 Mg Tab) 1 tab PO Q4H PRN PRN Reason: Pain (moderate 4-6) Last Admin: 09/23/21 01:26 Dose: 1 tab Documented by: Oxycodone/Acetaminophen (Acetaminophen/Oxycodone 325-5 Mg Tab) 2 tab PO Q4H PRN PRN Reason: Pain (severe 7-10) Last Admin: 09/23/21 07:06 Dose: 2 tab Documented by: Prenat Multivit/[place]/Iron/Folic Ac ( Multivitamin With Calcium/Folic Acid/Iron Tab) 1 each PO DAILY [facility] Last Admin: 09/22/21 10:34 Dose: 1 each Documented by: Simethicone (Simethicone 80 Mg Tab.Chew) 80 mg PO QID [facility] Last Admin: 09/22/21 20:42 Dose: 80 mg Documented by: Discontinued Medications Bupivacaine HCl (Bupivacaine 0.5% 30 Ml Sdv) Confirm Administered Dose 30 ml .ROUTE .STK-MED ONE Stop: 09/21/21 07:27 Last Admin: 09/21/21 08:20 Dose: 20 ml Documented by: Cefazolin Sodium (Cefazolin 1 Gm Vial) Confirm Administered Dose 2 gm .ROUTE .STK-MED ONE Stop: 09/21/21 06:59 Citric Acid/Sodium Citrate (Citric Acid/Sodium Citrate Solution 30 Ml Cup) 30 ml PO ONETIME ONE Stop: 09/21/21 06:01 Last Admin: 09/21/21 07:23 Dose: 30 ml Documented by: Diphenhydramine HCl (Diphenhydramine 50 Mg/Ml Sdv) 25 mg IVPUSH Q6H PRN PRN Reason: Pruritis Ephedrine Sulfate (Ephedrine 50 Mg/Ml Sdv) Confirm Administered Dose 50 mg .ROUTE .STK-MED ONE Stop: 09/21/21 08:05 Fentanyl (Fentanyl 100 Mcg/2 Ml Sdv) Confirm Administered Dose 100 mcg .ROUTE .STK-MED ONE Stop: 09/21/21 06:55 Fentanyl (Fentanyl 100 Mcg/2 Ml Sdv) 50 mcg IVPUSH Q5M PRN PRN Reason: Pain Cefazolin Sodium/Dextrose 2 gm (/ Premix) 50 mls @ 100 mls/hr IV ONETIME ONE Stop: 09/21/21 03:28 Oxytocin/Lactated Ringer's (Pitocin In Lr 20 Units/1,000 Ml) 20 unit in 1,000 mls @ 500 mls/hr IV TITRATE GILBERTO; Protocol Lactated Ringer's (Ringers, Lactated) 1,000 mls @ 125 mls/hr IV ASDIRECTED [facility] Last Admin: 09/21/21 06:10 Dose: 125 mls/hr Documented by: Lactated Ringer's (Ringers, Lactated) Confirm Administered Dose 2,000 mls @ as directed .ROUTE .STK-MED ONE Stop: 09/21/21 08:23 Dextrose/Lactated Ringer's (Dextrose 5%-Lactated Ringers) 1,000 mls @ 125 mls/hr IV ASDIRECTED [facility] Stop: 09/21/21 18:39 Last Admin: 09/21/21 10:57 Dose: 125 mls/hr Documented by: Lactated Ringer's (Ringers, Lactated) 1,000 mls @ 999 mls/hr IV .BOLUS ONE Stop: 09/21/21 18:24 Last Admin: 09/21/21 18:00 Dose: 999 mls/hr Documented by: Dextrose/Lactated Ringer's (Dextrose 5%-Lactated Ringers) 1,000 mls @ 150 mls/hr IV ASDIRECTED [facility] Stop: 09/22/21 01:09 Last Admin: 09/21/21 20:14 Dose: 150 mls/hr Documented by: Ibuprofen (Ibuprofen 800 Mg Tab) 800 mg PO Q8H [facility] Last Admin: 09/22/21 02:17 Dose: 800 mg Documented by: Ketorolac Tromethamine (Ketorolac 30 Mg/Ml Sdv) Confirm Administered Dose 30 mg .ROUTE .STK-MED ONE Stop: 09/21/21 08:22 Lidocaine HCl (Lidocaine 1% 5 Ml Sdv) Confirm Administered Dose 5 ml .ROUTE .STK-MED ONE Stop: 09/21/21 08:03 Metoclopramide HCl (Metoclopramide 10 Mg/2 Ml Sdv) 10 mg IVPUSH ONETIME ONE Stop: 09/21/21 06:01 Last Admin: 09/21/21 07:23 Dose: 10 mg Documented by: Morphine Sulfate (Morphine Pf 10 Mg/10 Ml Sdv) Confirm Administered Dose 10 mg .ROUTE .STK-MED ONE Stop: 09/21/21 06:55 Ondansetron HCl (Ondansetron 4 Mg/2 Ml Sdv) 4 mg IVPUSH Q4H PRN PRN Reason: Nausea/Vomiting Ondansetron HCl (Ondansetron 4 Mg/2 Ml Sdv) Confirm Administered Dose 8 mg .ROUTE .STK-MED ONE Stop: 09/21/21 08:22 Ondansetron HCl (Ondansetron 4 Mg/2 Ml Sdv) 4 mg IVPUSH ONETIME PRN PRN Reason: Nausea/Vomiting Oxytocin (Oxytocin 10 Units/1 Ml Sdv) Confirm Administered Dose 20 unit .ROUTE .STK-MED ONE Stop: 09/21/21 06:56 Oxytocin (Oxytocin 10 Units/1 Ml Sdv) Confirm Administered Dose 20 unit .ROUTE . STK-MED ONE Stop: 09/21/21 08:30 Prochlorperazine Edisylate (Prochlorperazine 10 Mg/2 Ml Sdv) 5 mg IVPUSH Q1H PRN PRN Reason: Nausea Last Admin: 09/21/21 16:54 Dose: 5 mg Documented by: Sodium Chloride (Sodium Chloride 0.9% 10 Ml Syringe) 10 ml FLUSH 0900,2100 GILBERTO - Exam General: Reports: Alert, Oriented HEENT: Reports: Pupils Equal, Pupils Reactive, EOMI, Mucous Membr. Moist/[place] Neck: Reports: Supple Lungs: Reports: Clear to Auscultation, Normal Respiratory Effort Cardiovascular: Reports: Regular Rate, Regular Rhythm GI/Abdominal Exam: Normal Bowel Sounds, Soft, Non-Tender, No Organomegaly, No Distention, No Abnormal Bruit, No Mass Rectal (Female) Exam: Normal Exam, Normal Rectal Tone Back Exam: Reports: Normal Inspection, Full Range of Motion Extremities: Normal Inspection, Normal Range of Motion, Non-Tender, No Pedal Edema, Normal Capillary Refill Skin: Reports: Warm, Dry, Intact Wound/Incisions: Reports: Healing Well Neurological: Reports: No New Focal Deficit Psy/Mental Status: Reports: Alert, Normal Affect, Normal Mood
[2021-09-23 11:58] VITALS: BP 108/56; PULSE 63
== END 2021-09-23 10:01 | disposition home or self-care (01) | DRG 788 ==
LOC: JD.OB 04:54
PROVIDERS: ADMIT Obstetrics & Gynecology; ATTEND Obstetrics & Gynecology
PROC: 10D00Z1 Extraction of Products of Conception, Low, Open Approach (ICD-10-PCS; principal; 2021-09-21)
DX: O34.211 Maternal care for low transverse scar from previous cesarean delivery (principal); Z3A.39 39 weeks gestation of pregnancy; Z37.0 Single live birth; O99.214 Obesity complicating childbirth; E66.9 Obesity, unspecified; O99.02 Anemia complicating childbirth; D64.9 Anemia, unspecified; O99.52 Diseases of the respiratory system complicating childbirth; Z20.822 Contact with and (suspected) exposure to COVID-19
CPT/HCPCS: 01961; 36415; 59025; 85025; 86592; 86850; 86900; 86901; 94761; A9270-GY; J0690; J0780; J1885; J2270; J2405; J2590; J2765; J3010; J3490; J7120; J7121; U0002

== ENCOUNTER 2021-10-09 13:03 | Emergency (ER) | payer MEDICAID ==
[2021-10-09 13:30] VITALS: BP 124/82; PULSE 77
[2021-10-09 14:10] LABS: CORONAVIRUS COVID-19 NAA NEGATIVE (NEGATIVE)
[2021-10-09] MEDS ORDERED: Ketorolac 60 MG/2 ML SDV IM ONE (14:24)
[2021-10-09] MEDS ORDERED: Orphenadrine 100 MG Tab.ER PO ONE (14:28)
--- NOTE | 2021-10-09 14:37 | EDM.PDOC ---
<Megan Fajardo - Last Filed: 10/09/21 15:42> ED HPI GENERAL MEDICAL PROBLEM - General Chief Complaint: Abdominal Pain Stated Complaint: ABDOMINAL PAIN-- HAD C SECTION 2 WEEKS AGO Time Seen by Provider: 10/09/21 14:11 Source of Information: Reports: Patient History Limitations: Reports: No Limitations - History of Present Illness INITIAL COMMENTS - FREE TEXT/NARRATIVE: Mikala Cantrell is a 31-year-old woman who presents for evaluation of abdominal pain after a 2 weeks ago. She has been feeling generally ill the past few days, then this morning she felt a 10/10 pain in her upper abdomen. Unable to describe her pain specifically only that it hurts. She reports being unable to take a deep breath. She is not currently . She denies any breast tenderness. She denies tenderness to her incision site. Pain with urination, no blood in her urine. She denies any abnormal discharge, "just regular post- stuff". Onset: Today, Sudden Abdominal Pain Score (Numeric/FACES): 5 - Related Data Allergies Allergy/AdvReac Type Severity Reaction Status Date / Time No Known Allergies Allergy Verified 10/09/21 13:30 Home Meds: Home Meds Cefdinir [Omnicef] 300 mg PO BID 5 Days #10 cap 10/09/21 [Rx] Orphenadrine [Norflex] 100 mg PO BID PRN #20 tab 10/09/21 [Rx] Past Medical History - Past Health History Medical/Surgical History: Denies Medical/Surgical History Respiratory History: Reports: Asthma Other Respiratory History: Seasonal Asthma [employer] TE[employer] History: Reports: Other [employer] TE[employer]ER History: C/S in 2014,2017 Musculoskeletal History: Reports: Other (See Below) Other Musculoskeletal History: 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, wears wrist brace at times Psychiatric History: Reports: Depression Other Psychiatric History: Hx of PP depression Endocrine/Metabolic History: Reports: Hyperthyroidism Hematologic History: Reports: Anemia - Past Surgical History HEENT Surgical History: Reports: Oral Surgery Other HEENT Surgeries/Procedures: [place] Teeth removed Respiratory Surgical History: Reports: None Female Surgical History: Reports: Section Other Female Surgeries/Procedures: x2 2014, 2017 Social & Family History - Family History Family Medical History: No Pertinent Family History HEENT: Reports: Other (See Below) Cardiac: Reports: Other (See Below) Neurological: Reports: Other (See Below) Endocrine/Metabolic: Reports: Other (See Below) Oncologic: Reports: Breast - Tobacco Use Tobacco Use Status *Q: Never Tobacco User Second Hand Smoke Exposure: No - Caffeine Use Caffeine Use: Reports: None - Recreational Drug Use Recreational Drug Use: No - Living Situation & Occupation Living situation: Reports: Occupation: Unemployed ED ROS GENERAL - Review of Systems Review Of Systems: Comprehensive ROS is negative, except as noted in HPI. Constitutional: Reports: No Symptoms HEENT: Reports: No Symptoms Respiratory: Reports: No Symptoms Cardiovascular: Reports: No Symptoms Endocrine: Reports: No Symptoms GI/Abdominal: Reports: Abdominal Pain : Reports: Dysuria. Denies: Hematuria Musculoskeletal: Reports: No Symptoms Skin: Reports: No Symptoms Neurological: Reports: No Symptoms Psychiatric: Reports: No Symptoms Hematologic/Lymphatic: Reports: No Symptoms Immunologic: Reports: No Symptoms ED EXAM, GENERAL - Physical Exam Exam: See Below Exam Limited By: No Limitations General Appearance: Alert, WD/WN, No Apparent Distress, Other (Temp 98.1, Pulse 77, RR 15, BP 124/82, SpO2 100% on room air. ) Eye Exam: Bilateral Eye: EOMI, PERRL Ears: Normal External Exam, Hearing Grossly Normal Nose: Normal Inspection Throat/Mouth: Normal Inspection, Normal Voice, No Airway Compromise Head: Atraumatic, Normocephalic Neck: Normal Inspection, Supple, Non-Tender, Full Range of Motion Respiratory/Chest: No Respiratory Distress, Lungs Clear, Normal Breath Sounds, No Accessory Muscle Use Cardiovascular: Regular Rate, Rhythm GI/Abdominal: Normal Bowel Sounds, Soft, No Distention, Tender (Tenderness in the epigastric region. ), Other (Well healing scar. No pus or erythema noted. ) Back Exam: Full Range of Motion, Paraspinal Tenderness (left thoracic) Extremities: Normal Inspection, Normal Range of Motion Neurological: Alert, Oriented, Normal Cognition, No Motor/Sensory Deficits Psychiatric: Normal Affect, Normal Mood Skin Exam: Warm, Dry, Intact Lymphatic: No Adenopathy Course - Re-Assessments/Exams Free Text/Narrative Re-Assessment/Exam: 10/09/21 14:30 Initial orders include COVID/Influenza/RSV swab, UA w/culture, 100mg Norflex PO, 60mg IM Toradol, CBC, CMP, CRP. Differential includes UTI, MSK back pain, and abdominal etiology rated to her c- section 2 weeks ago. 10/09/21 14:47 COVID, Influenza A&B, RSV negative. UA Results: Appearance: Slightly cloudy Proteins: 1+ Ketones: Trace Occult Blood: 2+ Leukocyte Esterase: Trace Urine RBC: 20-30 Urine WBC: 10-20 Squamous Epithelium: 5-10 Urine Bacteria: Moderate Otherwise, negative. 10/09/21 15:42 WBC: 16.03. 1g IM Rocephin ordered. Toradol and Norflex seemed to give the patient relief. It appears that most of this is likely due to a pyelonephritis, in addition to musculoskeletal back pain. Patient sent home with Omnicef and Norflex for on-going management. Departure - Departure Disposition: Home, Self-Care 01 Condition: Fair Clinical Impression: Acute left-sided thoracic back pain UTI (urinary tract infection) Qualifiers: Urinary tract infection type: acute pyelonephritis Qualified Code(s): N10 - Acute pyelonephritis - Discharge Information *PRESCRIPTION DRUG MONITORING PROGRAM REVIEWED*: Not Applicable *COPY OF PRESCRIPTION DRUG MONITORING REPORT IN PATIENT MARITA: Not Applicable Prescriptions: Orphenadrine [Norflex] 100 mg PO BID PRN #20 tab PRN Reason: Spasms Cefdinir [Omnicef] 300 mg PO BID 5 Days #10 cap Instructions: Acute Back Pain, Adult, Urinary Tract Infection, Adult Referrals: Chema Cullen MD [Primary Care Provider] - Forms: ED Department Discharge Additional Instructions: You have been evaluated in the ER for your abdominal and back pain and burning with urination. Blood work and urinalysis are consistent with an infection, likely a pyelonephritis - which is a UTI which appears to spread to your kidneys. You were given a shot of Rocephin to help treat this. Additionally, a prescription for Omnicef (Cefdinir) has been sent to the pharmacy to be picked up. Take 1 tablet twice a day for the next 5 days. It is important that you complete the entire course of anti-biotics, even if you begin to feel better. Urine will be sent for culture. Results can take up to 48 hours. We will call you with results if a change in anti-biotic is needed. Back pain is thought likely to be due to musculoskeletal origin. You were treated with intramuscular Toradol, which is an NSAID, and an oral muscle- relaxer Norflex (Orphenadrine). These seem to have worked well to help resolve your symptoms. A prescription for the Norflex has been sent. You can take one tablet once every 12 hours as needed. Caution with use during the day as these may cause you to be sleepy. Please avoid any driving or heavy lifting until you know how they will effect you. You can also take 600mg of ibuprofen every 6 hours, as needed for the back pain. In addition to the muscle relaxers, you are encouraged to follow-up with your PCP and a chiropractor to assess if further management is needed for your back discomfort. If your symptoms do not improve, you are welcome to return to the ER or follow- up with your PCP. If your symptoms worsen, please do not hesitate to return to the ER for further work-up and treatment. <Marva Adorno V - Last Filed: 10/09/21 15:56> Course - Vital Signs Last Recorded V/S: Last Vital Signs Temp 98.1 F 10/09/21 13:29 Pulse 77 10/09/21 13:29 Resp 15 10/09/21 13:29 BP 124/82 10/09/21 13:29 Pulse Ox 100 10/09/21 13:29 - Orders/Labs/Meds Orders: Active Orders 24 hr Category Date Time Status CULTURE URINE [MREF] Stat Lab 10/09/21 13:22 Received Labs: Laboratory Tests 10/09/21 10/09/21 10/09/21 Range/Units 13:14 13:22 15:01 WBC 16.03 H (3.98-10.04) K/mm3 RBC 5.11 (3.98-5.22) M/mm3 Hgb 14.6 D (11.2-15.7) gm/dl Hct 46.4 H (34.1-44.9) % MCV 90.8 (79.4-94.8) fl MCH 28.6 (25.6-32.2) pg MCHC 31.5 L (32.2-35.5) g/dl RDW Std Deviation 51.3 H (36.4-46.3) fL Plt Count 399 H D (182-369) K/mm3 MPV 9.2 L (9.4-12.3) fl Neut % (Auto) 85.8 H (34.0-71.1) % Lymph % (Auto) 9.4 L (19.3-51.7) % [place] % (Auto) 4.0 L (4.7-12.5) % Eos % (Auto) 0.5 L (0.7-5.8) Baso % (Auto) 0.1 (0.1-1.2) % Neut # (Auto) 13.76 H (1.56-6.13) K/mm3 Lymph # (Auto) 1.50 (1.18-3.74) K/mm3 [place] # (Auto) 0.64 H (0.24-0.36) K/mm3 Eos # (Auto) 0.08 (0.04-0.36) K/mm3 Baso # (Auto) 0.02 (0.01-0.08) K/mm3 Sodium (136-145) mEq/L Potassium (3.5-5.1) mEq/L Chloride (98-107) mEq/L Carbon Dioxide (21-32) mEq/L Anion Gap (5-15) BUN (7-18) mg/dL Creatinine (0.55-1.02) mg/dL Est Cr Clr Drug Dosing mL/min Estimated GFR (MDRD) (>60) mL/min BUN/Creatinine Ratio (14-18) Glucose (70-99) mg/dL Calcium (8.5-10.1) mg/dL Total Bilirubin (0.2-1.0) mg/dL AST (15-37) U/L ALT (14-59) U/L Alkaline Phosphatase (46-116) U/L C-Reactive Protein (<1.0) mg/dL Total Protein (6.4-8.2) g/dl Albumin (3.4-5.0) g/dl Globulin gm/dL Albumin/Globulin Ratio (1-2) Urine Color Yellow (Yellow) Urine Appearance Slt cloudy H (Clear) Urine pH 7.5 (5.0-8.0) Ur Specific [place] 1.020 (1.005-1.030) Urine Protein 1+ H (Negative) Urine Glucose (UA) Negative (Negative) Urine Ketones Trace H (Negative) Urine Occult Blood 2+ H (Negative) Urine Nitrite Negative (Negative) Urine Bilirubin Negative (Negative) Urine Urobilinogen 0.2 (0.2-1.0) Ur Leukocyte Esterase Trace H (Negative) Urine RBC 20-30 H (0-5) /hpf Urine WBC 10-20 H (0-5) /hpf Ur Squamous Epith Cells 5-10 H (0-5) /hpf Urine Bacteria Moderate H (FEW) /hpf Urine Mucus Rare (FEW) /hpf Influenza Type A RNA Negative (NEGATIVE) RSV RNA (INAAT) Negative (NEGATIVE) Influenza Type B RNA Negative (NEGATIVE) SARS-CoV-2 RNA ([place]) Negative (NEGATIVE) 10/09/21 Range/Units 15:01 WBC (3.98-10.04) K/mm3 RBC (3.98-5.22) M/mm3 Hgb (11.2-15.7) gm/dl Hct (34.1-44.9) % MCV (79.4-94.8) fl MCH (25.6-32.2) pg MCHC (32.2-35.5) g/dl RDW Std Deviation (36.4-46.3) fL Plt Count (182-369) K/mm3 MPV (9.4-12.3) fl Neut % (Auto) (34.0-71.1) % Lymph % (Auto) (19.3-51.7) % [place] % (Auto) (4.7-12.5) % Eos % (Auto) (0.7-5.8) Baso % (Auto) (0.1-1.2) % Neut # (Auto) (1.56-6.13) K/mm3 Lymph # (Auto) (1.18-3.74) K/mm3 [place] # (Auto) (0.24-0.36) K/mm3 Eos # (Auto) (0.04-0.36) K/mm3 Baso # (Auto) (0.01-0.08) K/mm3 Sodium 141 (136-145) mEq/L Potassium 4.2 (3.5-5.1) mEq/L Chloride 103 (98-107) mEq/L Carbon Dioxide 30 D (21-32) mEq/L Anion Gap 12.2 (5-15) BUN 19 H (7-18) mg/dL Creatinine 0.9 (0.55-1.02) mg/dL Est Cr Clr Drug Dosing 76.77 mL/min Estimated GFR (MDRD) > 60 (>60) mL/min BUN/Creatinine Ratio 21.1 H (14-18) Glucose 109 H (70-99) mg/dL Calcium 9.3 (8.5-10.1) mg/dL Total Bilirubin 0.6 (0.2-1.0) mg/dL AST 62 H (15-37) U/L ALT 48 (14-59) U/L Alkaline Phosphatase 116 (46-116) U/L C-Reactive Protein <0.2 (<1.0) mg/dL Total Protein 7.7 (6.4-8.2) g/dl Albumin 4.0 (3.4-5.0) g/dl Globulin 3.7 gm/dL Albumin/Globulin Ratio 1.1 (1-2) Urine Color (Yellow) Urine Appearance (Clear) Urine pH (5.0-8.0) Ur Specific [place] (1.005-1.030) Urine Protein (Negative) Urine Glucose (UA) (Negative) Urine Ketones (Negative) Urine Occult Blood (Negative) Urine Nitrite (Negative) Urine Bilirubin (Negative) Urine Urobilinogen (0.2-1.0) Ur Leukocyte Esterase (Negative) Urine RBC (0-5) /hpf Urine WBC (0-5) /hpf Ur Squamous Epith Cells (0-5) /hpf Urine Bacteria (FEW) /hpf Urine Mucus (FEW) /hpf Influenza Type A RNA (NEGATIVE) RSV RNA (INAAT) (NEGATIVE) Influenza Type B RNA (NEGATIVE) SARS-CoV-2 RNA ([place]) (NEGATIVE) Meds: Medications Discontinued Medications Generic Name Dose Route Start Last Admin Trade Name Freq PRN Reason Stop Dose Admin Ceftriaxone Sodium 1 gm/ 0 gm 10/09/21 15:42 10/09/21 15:50 Lidocaine HCl 2.1 ml IM 10/09/21 15:43 2.1 inj ONETIME ONE Administration Ketorolac Tromethamine 60 mg 10/09/21 14:24 10/09/21 14:36 Ketorolac 60 Mg/2 Ml Sdv IM 10/09/21 14:25 60 mg ONETIME ONE Administration Orphenadrine Citrate 100 mg 10/09/21 14:28 10/09/21 14:35 Orphenadrine 100 Mg Tab.Er PO 10/09/21 14:29 100 mg ONETIME ONE Administration - Re-Assessments/Exams Free Text/Narrative Re-Assessment/Exam: 10/09/21 15:54 I have read and reviewed the student's HPI and examined the patient and agree with Ruiz MYERS. Departure - Departure Time of Disposition: 15:55 Sepsis Event Note (ED) - Focused Exam Vital Signs: Vital Signs Temp Pulse Resp BP Pulse Ox 10/09/21 13:29 98.1 F 77 15 124/82 100
[2021-10-09] MEDS ORDERED: cefTRIAXone 1 GM, Lidocaine 1% 2.1 ML IM ONE ×2 (15:42)
== END 2021-10-09 16:13 | disposition home or self-care (01) ==
LOC: JD.ED 13:03
DX: N10 Acute pyelonephritis (principal); M54.6 Pain in thoracic spine; Z20.822 Contact with and (suspected) exposure to COVID-19; Z98.891 History of uterine scar from previous surgery
CPT/HCPCS: 0241U; 36415; 80053; 81001; 85025; 86140; 87086; 96372; 99284; A9270; J0696; J1885